=== PATIENT | female | born 1955 | race Hispanic/Latino ===

== ENCOUNTER 2021-06-30 19:27 | Emergency (ER) | payer OTHER ==
--- OUTSIDE RECORDS SUMMARY | 2021-06-30 19:29 | XMS REPORT | Continuity of Care Document ---
:1955 Author Organization [facility] t Address [address] [place] [address] Care Team Providers Name Role Phone Rose Barnett Attending Clinician Unavailable Millender Attending Clinician Unavailable Problems This patient has no known problems. Allergies, Adverse Reactions, Alerts Allergy Allergy Status Severity Reaction(s) Onset Inactive Treating Comm ents Source Name Type Date Date Clinician Bactrim Adverse Active rash [facility] Medications Ordered Filled Start Stop Current Ordering Indication Dosage Frequency Signature Comments Components Source Medication Medication Date Date Medication? Clinician (SIG) Name Name Metformin Metformin Yes Martha [address] [facility] HCl HCl 7- Millender with a [facility] Ciprofloxac Ciprofloxac 2020- No Martha [address] [facility] in HCl in HCl 7- 07-29 Millender [facility] Humalog Humalog Yes Martha as [facility] KwikPen KwikPen 2-26 Millender directed [facility] Lancets Lancets Yes Martha as [facility] 2-02 Millender directed [facility]: (dispense [facility] 00 lancets l formulary Outpati to ent insurance) Clinics [place] Yes Martha as [facility] 2-02 Millender directed [facility] Glucose Glucose 2019-0 Yes Martha as [facility] testing testing 2-02 Millender directed [facility] - strips strips 00:00: (dispense Abner dian 00 testing l strips [facility]) Blood Blood Yes Martha as [facility] Glucose Glucose 2-02 Millender directed [facility] - Monitor Monitor 00:00: (DISPENSE Me moria 00 BLOOD l [facility]SE [facility] FORMULARY Clinics TO INSURANCE) Lisinopril Lisinopril Yes Martha [address] [facility] Millender [facility] Levothyroxi Levothyroxi Yes Martha [address] [facility] ne Sodium ne Sodium Millender in the [facility] - morning on [facility] an [facility] Alprazolam Alprazolam Yes Martha [address] [facility] Millender [facility] ent Clinics Lantus Lantus Yes Martha as [facility] SoloStar SoloStar Millender directed [facility] ent Clinics Atorvastati Atorvastati Yes Martha [address] [facility] n Calcium n Calcium Millender in evening [facility] Clinics Gabapentin Gabapentin Yes Martha [address] [facility] Millender [facility] l [facility] ent Clinics NovoLog NovoLog Yes Martha as [facility] Flexpen Flexpen Millender directed [facility] ent Clinics Loratadine Loratadine 2020- No Martha [address] [facility] -16 Millender [facility]00 l [facility] ent Clinics Procedures This patient has no known procedures. Encounters Start End Encounter Admission Attending Care Care Encounter Source Date/Time Date/Time Type Type Clinicians Facility Department ID 2021-04-23 Outpatient Rose Barnett [facility] [id number] [facility] 11:03:03 [facility] 2021-[facility]21 [facility] [id number] [facility] 14[facility]40:07 [facility] 2021-04-21 Outpatient Rose Barnett [facility] [id number] [facility] [address] 13:56:50 [id number] [facility] 2021-04-21 Outpatient Anibal, Na [facility] [id number] [facility] [address] 13:23:12 [id number] [facility] 2021-04-21 Outpatient Anibal, Na [facility] [id number] [facility] [address] 12:57:12 [id number] [facility] 2021-04-21 Outpatient Anibal, Na [facility] [id number] [facility] [address] 12:36:43 [id number] [facility] 2021-04-21 Outpatient Anibal, Na [facility] [id number] [facility] [address] 12:36:23 [id number] [facility] 2021-04-21 Outpatient [facility] [id number] [facility] [address] 12:35:32 [id number] [facility] 2021-04-21 Outpatient [facility] [id number] [facility] 12[facility]17:59 [id number] [facility] 2021-04-21 Outpatient Stevan, [facility] [id number] 11:58:10 Martha [id number] [facility] 2021-04-21 Outpatient Stevan, [facility] [id number] 11:32:28 Martha [id number] [facility] 2021-04-21 Outpatient Stevan, [facility] [id number] 11:18:31 Martha [id number] [facility] 2021-04-21 Outpatient Stevan, [facility] [id number] 11:11:24 Martha [id number] [facility] 2021-04-21 Outpatient Stevan, [facility] [id number] 11:10:20 Martha [id number] [facility] 2021-04-21 Outpatient Stevan, [facility] [id number] 11:04:45 Martha [id number] [facility] 2021-04-23 2021-04-23 ambulatory [facility] [id number] [facility] 2021-04-23 2021-04-23 ambulatory [facility] [id number] [facility] 2021-04-01 2021-04-01 ambulatory [facility] [id number] [facility] 2021-02-06 2021-02-06 ambulatory [facility] [id number] [facility] 2021-01-28 2021-01-28 ambulatory [facility] [id number] [facility] 2021-01-28 2021-01-28 ambulatory [facility] [id number] [facility] 2021-01-20 2021-01-20 Outpatient [facility] [id number] [facility] 2021-01-06 2021-01-06 Outpatient [facility] [id number] [facility] 2020-12-31 2020-12-31 Outpatient [facility] [id number] [facility] 2020-11-23 2020-11-23 Outpatient [facility] [id number] [facility] 2020-11-17 2020-11-17 Outpatient [facility] [id number] [facility] 2020-11-04 2020-11-04 Outpatient [facility] [id number] [facility] 2020-10-05 2020-10-05 Outpatient [facility] [id number] [facility] 2020-10-01 2020-10-01 Outpatient [facility] [id number] [facility] 2020-09-14 2020-09-14 Outpatient [facility] [id number] [facility] 2020-08-28 2020-08-28 Outpatient [facility] [id number] [facility] 2020-07-17 2020-07-17 Outpatient [facility] [id number] [facility] 2020-05-30 2020-05-30 Outpatient [facility] [id number] [facility] 2020-05-29 2020-05-29 Outpatient [facility] [id number] [facility] 2020-05-29 2020-05-29 Outpatient [facility] [id number] [facility] 2020-05-29 2020-05-29 Outpatient [facility] [id number] [facility] 2020-01-16 2020-01-16 Outpatient [facility] [id number] [facility] 2019-10-17 2019-10-17 [facility] [id number] [facility] 01[facility]23:00 01:23:00 [facility] Medicine Outpati ent Clinics 2019-10-16 2019-10-16 [facility] [id number] [facility] 10:20:00 10:20:00 [facility] Medicine Outpati [facility] Clinics 2019-07-16 2019-07-16 [facility] [id number] [facility] 13:30:00 13:30:00 [facility] Medicine Outpati ent Clinics 2019-05-27 2019-05-27 [facility] [id number] [facility] 18:50:00 18:50:00 [facility] Medicine Outpat[facility] Clinics 2019-05-27 2019-05-27 [facility] [id number] [facility] 11:15:00 11:15:00 [facility] Outpat[facility] Clinics 2019-05-08 2019-05-08 [facility] [id number] 11:24:00 11:24:00 [facility] Out[facility] Clinics 2019-04-26 2019-04-26 [facility] [id number] 14:00:00 14:00:00 [facility] Clin[facility] Results This patient has no known results.
--- NOTE | 2021-06-30 19:57 | RAD REPORT ---
EXAM DESCRIPTION: RAD - Chest Single View - 06/30/2021 7:51 pm CLINICAL HISTORY: CHEST PAIN Chest pain. COMPARISON: CHEST SINGLE VIEW dated 07/28/2013 FINDINGS: Portable technique limits examination quality. The lungs are grossly clear. The heart is upper limit of normal in size. No displaced fractures. IMPRESSION: No acute intrathoracic process suspected.
[2021-06-30 20:37] LABS: Absolute Lymphocytes (CBC) 1.2 K/uL (0.7-4.9); Hematocrit 36.1 % (36.0-45.0); Lymphocytes % 12.5 % (15.3-44.8); MPV 8.7 fL (7.6-11.3); RBC Red Blood Cell Count 4.26 M/uL (3.86-4.86)
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
[2021-06-30 22:59] LABS: Albumin 3.4 g/dL (3.4-5.0); Bilirubin Direct 0.1 mg/dL (0-0.2); Bilirubin Total 0.4 mg/dL (0.2-1.0); Potassium 3.8 mmol/L (3.5-5.1); Protein, Total 7.4 g/dL (6.4-8.2); Troponin High Sensitivity 11.5 pg/mL (<58.9)
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
[2021-07-01 09:52] VITALS: TEMP 98.3
[2021-07-01 09:57] VITALS: BP 129/82; O2SAT 99
== END 2021-07-01 00:28 | disposition home or self-care (01) ==
LOC: ER 19:27
DX: S22.22XA Fracture of body of sternum, initial encounter for closed fracture (principal); M79.642 Pain in left hand; M25.552 Pain in left hip; V59.50XA Passenger in pick-up truck or van injured in collision with unspecified motor vehicles in traffic accident, initial encounter; E11.9 Type 2 diabetes mellitus without complications; E78.00 Pure hypercholesterolemia, unspecified
CPT/HCPCS: 93005; 85025; 80048; 36415; 85610; 82565; 82947 ×2; 80076; 84484; 83880; 70450; 72125; 71260; 74177; 71045; 73130; 96375; 96374; 99284; Q9967